=== PATIENT | female | born 1965 | race Caucasian/White ===

== ENCOUNTER 2017-02-03 19:05 | Emergency (ER) | payer BC ==
[~2017-02-03] VITALS: Ht 160 cm; Wt 87.7 kg
[2017-02-03 19:24] VITALS: BP 142/88
--- NOTE | 2017-02-03 20:37 | NUR ---
Patient ambulated to [facility] to be evaluated as fast track by Dr. Vazquez. RN evaluating patient.
--- NOTE | 2017-02-03 20:45 | NUR ---
51 Y/O F W/C/O L FLANK PAIN X 3 MTHS ON AND OFF AND N/V X YESTERDAY. NO OTHER S/S OF DISTRESS NOTED. ER MADE AWARE.
[2017-02-03] MEDS ORDERED: KETOROLAC 30 MG/ML VIAL IM ONE (20:50)
--- NOTE | 2017-02-03 20:52 | NUR ---
CARLOS ALBERTO FLORES AT BEDSIDE EVALUATING PT.
[2017-02-03 21:10] LABS: BILIRUBIN,URINE NEGATIVE (NEGATIVE); BLOOD, URINE 1+ (NEGATIVE); COLOR,URINE YELLOW (YELLOW); LEUKOCYTE ESTERASE ,URINE NEGATIVE (NEGATIVE); NITRITE, URINE NEGATIVE (NEGATIVE); UGLUCOSE NEGATIVE (NEGATIVE)
[2017-02-03 21:15] LABS: APPEARANCE,URINE CLOUDY (CLEAR)
[2017-02-03 21:20] LABS: RBC,URINE 0-5 (RARE) /HPF (0-5); WBC,URINE NONE SEEN /HPF (0-5)
[2017-02-03 21:21] LABS: CALCIUM OXALATE CRYSTALS,UR 0-10 /HPF (None Seen); URINE AMORPHOUS URATE 4+ /HPF (None Seen)
[2017-02-03 21:40] VITALS: BP 124/84
--- NOTE | 2017-02-03 21:40 | NUR ---
Patient discharged with v/s stable. Written and verbal after care instructions given and explained. Patient alert, oriented and verbalized understanding of instructions. Ambulatory with steady gait. All questions addressed prior to discharge. ID band removed. Patient advised to follow up with PMD IN 2 TO 3 DAYS OR F/U TO ER IF CONDITION WORSENS. Rx of NORCO, AND FLOMAX given. Patient educated on indication of medication including possible reaction and side effects. Opportunity to ask questions provided and answered.
== END 2017-02-03 21:40 | disposition home or self-care (01) ==
LOC: MED 19:05
DX: N20.1 Calculus of ureter (principal)
CPT/HCPCS: 74176; 81001; 96372; 99285; J1885